=== PATIENT | male | born 1935 | race Caucasian/White ===

== ENCOUNTER 2018-04-08 17:29 | Inpatient (IN) | payer OTHER ==
[~2018-04-08] VITALS: Ht 177.8 cm; Wt 143.0 kg
[~2018-04-08 17:29] MED LIST: ACET325 PO; ALBU3IS INH; ALBU90OI INH; ASCO500 PO; ASPI81CH PO; AZIT500 PO; BISA10S PO; CARV3.125 PO; CEFP200 PO; CHLO25B PO; DOXY100 PO; DULO30 PO; FURO40 PO; Ferrous Sulfat325 MG PO; GABA300 PO; INSDET100 SC; INSU100I6 SC; LOSA25 PO; NYSTRITC TOP; ONDA4ODT PO; PRED10 PO; SIMV40 PO; SPIR25 PO; TRAZ50 PO
[2018-04-08 18:07] LABS: BASOPHILS ABSOLUTE AUTO 0.02 K/mm3 (0.00-0.23); BASOPHILS PERCENT AUTO 0 % (0-2); EOSINOPHILS PERCENT AUTO 0 % (0-6); Hematocrit 37.2 % (37.0-53.0); Hemoglobin 11.2 g/dL (13.5-17.5); IMMATURE GRAN ABSOLUTE AUTO 0.17 K/mm3 (0.00-0.10); IMMATURE GRAN PERCENT AUTO 2 % (0-1); LYMPHOCYTES ABSOLUTE AUTO 0.64 K/mm3 (0.84-5.20); LYMPHOCYTES PERCENT AUTO 8 % (21-46); MONOCYTES ABSOLUTE AUTO 1.99 K/mm3 (0.16-1.47); MONOCYTES PERCENT AUTO 23 % (4-13); Mean Corpuscular HGB 31.5 pg (26.0-34.0); Mean Corpuscular HGB Conc 30.1 g/dL (31.5-36.5); Mean Corpuscular Volume 105 fL (80-100); Mean Platelet Volume 11.2 fL (9.1-12.4); NEUTROPHILS ABSOLUTE AUTO 5.76 K/mm3 (1.96-9.15); NEUTROPHILS PERCENT AUTO 67 % (41-73); Platelet Count 153 K/mm3 (150-400); RDW Coefficient Variation 17.5 % (11.7-14.2); RDW Standard Deviation 67.3 fL (35.1-46.3); Red Blood Cell Count 3.56 M/mm3 (4.30-5.90); White Blood Cell Count 8.58 K/mm3 (4.00-11.30)
[2018-04-08 18:27] LABS: Base Excess Venous 13.9 mmol/L; Bicarbonate Venous 36.2 mmol/L (24.0-30.0); PCO2 Venous 48.2 mmHg (38-42); PO2 Venous 168 mmHg (38-42)
[2018-04-08 18:27] LABS: Troponin I 0.37 ng/mL (0.000-0.040)
[2018-04-08 18:28] LABS: Albumin, Blood 3.3 g/dL (3.4-5.0); Albumin/Globulin Ratio 0.7 (0.8-1.8); Bilirubin, Total 2.4 mg/dL (0.1-1.0); Bun/Creatinine Ratio 24.9 (12.0-20.0); Calcium, Blood 8.7 mg/dL (8.5-10.1); Creatinine, Blood 1.73 mg/dL (0.60-1.20); Globulin, Blood 4.6 g/dL (2.2-4.0); Potassium, Blood 4.8 mmol/L (3.5-5.5); Total Protein, Blood 7.9 g/dL (6.4-8.2)
[2018-04-08 18:31] LABS: Thyroid Stimulating Hormone 1.74 uIU/mL (0.360-4.800)
--- NOTE | 2018-04-08 22:00 | NUR ---
ASSUMED CARE- PT TO PCU 16 AT APPROXIMATELY 2135 FROM ER VIA [facility]. PT IS CURRENTLY ANSWERING ALL ORIENTATION QUESTIONS APPROPRIATELY, BUT IS UNABLE TO KEEP EYES OPEN AND HAVE FULL CONVERSATION WITH STAFF. PT WILL MOSLTY SPEAK IN ORIENTED SENTENCES BUT WILL RAMBLE OCCASIONALLY ABOUT NONSENSICAL TOPICS. PT TRANSFERRED TO BED VIA CEILING LIFT. O2 SATS CURRENTLY 94% ON 5L VIA NASAL CANNULA. LUNG SOUNDS CLEAR WITH DIMINISHED BASES. PT DENIES PAIN. PT GIVEN CALL LIGHT AND ORIENTATION ATTEMPTED- UNABLE TO DETERMINE UNDERSTANDING. WILL CONTINUE WITH ASSESSMENT AND ADMISSION. BED IN LOW POSITION, CALL LIGHT IN REACH. BED ALARM SET FOR SAFETY.
[2018-04-09 00:36] LABS: Adenovirus Not Detected (NOT DETECT); Bordetella pertussis Not Detected (NOT DETECT); Chlamydophila pneumoniae Not Detected (NOT DETECT); Coronavirus 229E Not Detected (NOT DETECT); Coronavirus HKU1 Not Detected (NOT DETECT); Coronavirus NL63 Not Detected (NOT DETECT); Coronavirus OC43 Not Detected (NOT DETECT); Human Metapneumovirus Not Detected (NOT DETECT); Human Rhinovirus/Enterovirus Not Detected (NOT DETECT); Influenza A Not Detected (NOT DETECT); Influenza A/2009-H1 Not Detected (NOT DETECT); Influenza A/H1 Not Detected (NOT DETECT); Influenza A/H3 Not Detected (NOT DETECT); Influenza B Not Detected (NOT DETECT); Mycoplasma pneumoniae Not Detected (NOT DETECT); Parainfluenza Virus 1 Not Detected (NOT DETECT); Parainfluenza Virus 2 Not Detected (NOT DETECT); Parainfluenza Virus 3 Not Detected (NOT DETECT); Parainfluenza Virus 4 Not Detected (NOT DETECT); Respiratory Syncytial Virus Not Detected (NOT DETECT)
[2018-04-09 02:34] LABS: Hematocrit 36.4 % (37.0-53.0); Hemoglobin 10.8 g/dL (13.5-17.5); Mean Corpuscular HGB 31.5 pg (26.0-34.0); Mean Corpuscular HGB Conc 29.7 g/dL (31.5-36.5); Mean Corpuscular Volume 106 fL (80-100); Mean Platelet Volume 11.4 fL (9.1-12.4); Platelet Count 129 K/mm3 (150-400); RDW Coefficient Variation 17.6 % (11.7-14.2); RDW Standard Deviation 68.6 fL (35.1-46.3); Red Blood Cell Count 3.43 M/mm3 (4.30-5.90); White Blood Cell Count 7.48 K/mm3 (4.00-11.30)
[2018-04-09 02:57] LABS: Albumin, Blood 3.1 g/dL (3.4-5.0); Albumin/Globulin Ratio 0.7 (0.8-1.8); Bilirubin, Total 1.9 mg/dL (0.1-1.0); Bun/Creatinine Ratio 24.3 (12.0-20.0); Creatinine, Blood 2.06 mg/dL (0.60-1.20); Globulin, Blood 4.5 g/dL (2.2-4.0); Potassium, Blood 4.5 mmol/L (3.5-5.5); Total Protein, Blood 7.6 g/dL (6.4-8.2)
[2018-04-09 02:58] LABS: Troponin I 0.532 ng/mL (0.000-0.040)
[2018-04-09 03:02] LABS: Source, Urine Clean Catch
[2018-04-09 03:04] LABS: Appearance, Urine Clear (Clear); Blood, Urine 3+ (Neg); Color, Urine Amber (P-Yellow); Glucose Qualitative, Urine Neg (Neg); Ketones, Urine Neg (Neg); Leukocyte Esterase, Urine 1+ (Neg); Nitrite, Urine Neg (Neg); Protein, Urine 3+ (Neg); Specific Gravity, Urine 1.015 (1.003-1.022); Urobilinogen, Urine 2+ (Normal)
[2018-04-09 03:09] LABS: Bilirubin, Urine 1+ (Neg)
[2018-04-09 03:10] LABS: Red Blood Cells, Urine 0-2 /hpf (0-2)
[2018-04-09 03:11] LABS: Amorphous Light (0-Heavy); Bacteria Mod /hpf; Hyaline Casts 50-100 /lpf (0-2); Squamous Epithelial Cells Rare /hpf (Few)
[2018-04-09 03:15] LABS: U Amphetamine Screen Not Detected; U Barbituate Screen Not Detected; U Benzodiazapine Screen Not Detected; U Buprenorphine Screen Not Detected; U Cannabinoids Screen Not Detected; U Cocaine Screen Not Detected; U Methadone Screen Not Detected; U Methamphetamine Screen Not Detected; U Opiates Screen Not Detected; U Oxycodone Screen Not Detected; U Phencyclidine Screen Not Detected; U Propoxyphene Screen Not Detected
--- NOTE | 2018-04-09 03:34 | NUR ---
PROVIDER CONTACTED- PT WITH ELEVATED TROPONIN OF 0.532, DR CURRY UPDATED ON LAB AND PATIENT CONDITION- NO ORDERS RECEIVED IN REGARDS TO LAB. ORDERS RECEIVED FOR DIET, BLOOD GLUCOSE MONITORING, SLIDING SCALE INSULIN AND AMMONIA LEVEL WITH AM LAB DRAW. WILL INPUT ORDERS AND CONTINUE TO MONITOR.
--- NOTE | 2018-04-09 07:00 | NUR ---
SHIFT SUMMARY- PT HAS BECOME MORE ORIENTED THROUGHOUT THE NIGHT AND ABLE TO ANSWER ALL QUESTIONS APPROPRIATELY. VSS. PLEASANT AND COOPERATIVE WITH CARE. O2 SATS HAVE REMAINED >90% ON 3-4L VIA NASAL CANNULA OR BIPAP WITH 6L O2 BLEED IN. PT AMBULATES TO THE RESTROOM OR BEDSIDE COMMODE WITH 1 PERSON ASSIST AND FWW. PT IS VERY STABLE ON HIS FEET. DENIES PAIN, DIZZINESS, LIGHTHEADEDNESS. NO OTHER CHANGES NOTED FROM INITIAL ASSESSMENT. WILL CONTINUE TO MONITOR AND REPORT TO ONCOMING SHIFT RN .BED IN LOW POSITION, CALL LIGHT IN REACH.
[2018-04-09 09:23] LABS: Troponin I 0.446 ng/mL (0.000-0.040)
--- NOTE | 2018-04-09 09:42 | NUR ---
NURSING PCU DAYSHIFT: Assumed care of pt at approx 0700. A/O though forgetful at times, pleasant, cooperative w/care, [employer] [place]. Skin is fairly intact w/scabs noted to b/l shins and redness under folds. General weakness noted, c/o BLE neuropathy, ambulates w/one staff assist using FWW. Denies any pain/discomfort. Tele in place, NSR w/BBB, no c/o CP/pressure, SBP 130's. L/S w/fine bibasilar crackles (L>R), denies dyspnea, O2 sat low to mid 90's on 3L NC. Abd distended which pt states is normal, firm, BT+, voiding w/o difficulty. PIV s/l. No s/s of acute distress at this time. Seen by PMD, new d/o received and reviewed. Pt denies any current needs or questions regarding plan of care. Call light in reach and pt is able to use w/o difficulty. Cont to monitor for any changes.
[2018-04-09] MEDS ORDERED: CLOBET30L TOP (16:38)
[2018-04-09] MEDS ORDERED: MAGOXI400 PO (16:43)
[2018-04-09] MEDS ORDERED: METO2.5 PO (16:47)
[2018-04-09] MEDS ORDERED: POTA10T PO (16:49)
[2018-04-09] MEDS ORDERED: TIOT18 INH (16:54)
[2018-04-09] MEDS ORDERED: TRAZ50 PO (16:55)
--- NOTE | 2018-04-09 17:21 | NUR ---
NURSING PCU DAYSHIFT SUMMARY: No acute changes noted t/o the shift. Pt has been pleasant and cooperative w/care. Has spent the mojority of the shift OOB in a chair, tolerating well. Watched tv, talked on phone to friends/family, and had visitors intermittently t/o the shift. Pt has ambulated to the restroom w/o difficulty and has used call light for assistance when needed. Pt currently sitting in chair having supper. Denies any current needs or questions regarding plan of care. Cont to monitor until rpt is given to NOC RN.
--- NOTE | 2018-04-09 19:40 | NUR ---
ASSUMED CARE PT RESTING IN ROOM IN CHAIR COMFORABTLY. PER DAY SHIFT PT HAS SINCE CLEARED OF ENCEHALOPATHY AND IS AOX4 AND INDEPENDENT IN ROOM. PT ON 3L O2 VIA NC DURING DAY AND WEARS BIPAP AT NIGHT. DENIES ANY PAIN. SKIN PWD. RESP EVEN UNLABORED AT REST W/ SATS >92%. CALL LIGHT IN REACH.
[2018-04-10 04:32] LABS: Bun/Creatinine Ratio 32.3 (12.0-20.0); Calcium, Blood 9.3 mg/dL (8.5-10.1); Creatinine, Blood 1.86 mg/dL (0.60-1.20); Potassium, Blood 4.1 mmol/L (3.5-5.5)
--- NOTE | 2018-04-10 06:17 | NUR ---
SHIFT SUMMARY PT RESTING IN ROOM COMFORTABLY IN CHAIR AT BEDSIDE. NO ACUTE STATUS CHANGES OVERNIGHT. PT USED BIPAP FOR SHORT PERIODS. REPORTED NOT ABLE TO SLEEP WELL. WANTS TO GO HOME. EAGER TO HAVE PROVIDER COME IN AM. PT UP FROM BED TO CHAIR AND BACK MULTIPLE TIMES T/O NIGHT. RESP EVEN UNLABORED AT REST W/ SATS >92%. PT SOME MILD SOB W/ AMBULATION. INDEPENDENT IN ROOM. CALLS APPROPRIATELY. CALL LIGHT IN REACH.
--- NOTE | 2018-04-10 08:00 | NUR ---
PT SITTING ON THE SIDE OF THE BED AWAKE A/OX3, [place], COOPERATIVE WITH CARE, FOLLOWS COMMANDS WELL, DENIES PAIN, STATES HE IS READY TO GO HOME, DR. SOTO IN TO SEE HIM, OK TO DISCHARGE TO HOME. LUNGS ARE CLEAR IN UPPER CAMPO, DIM WITH SOME FINE CRACKLES IN BASES, RESP EVEN AND UNLABORED, NO COUGH NOTED, HRR, TELE IN PLACE RUNNING SR WITH BBB PER MONITOR, SEE STRIP 2+EDEMA NOTED TO B/L LE, CAP REFILL <3SEC VS STABLE, AFEBRILE, IV SITE IS CLEAR AND PATENT, BTX4, ABD ROUND SOFT NONTENDER, VOIDS WITHOUT DIFF, SKIN C/W/D, CHRONIC REDNESS TO B/L LE, CAP REFILL <3 SEC, ROSA, UP INDEP IN ROOM, DELBERT, CALL LIGHT IN REACH.
--- NOTE | 2018-04-10 10:45 | NUR ---
PT HAS BEEN DISCHARGED BY DR. SOTO, WENT OVER INSTRCUTIONS, NO CHANGES, IV REMOVED, PT REFUSED SHOWER WHEN LAY OUT FORMER OFFERED, HERE TO PICK HIM UP, LEFT VIA WHEELCHAIR WITH ESCORT IN ATTENDENCE.
== END 2018-04-10 10:35 | disposition home or self-care (01) | DRG 291 ==
LOC: ER 17:29 → PCU 20:44
PROVIDERS: Emergency Medicine; Hospitalist; ADMIT Internal Medicine
DX: I13.0 Hypertensive heart and chronic kidney disease with heart failure and stage 1 through stage 4 chronic kidney disease, or unspecified chronic kidney disease (principal); J96.21 Acute and chronic respiratory failure with hypoxia; I50.41 Acute combined systolic (congestive) and diastolic (congestive) heart failure; E87.2 Acidosis; Z68.42 Body mass index [BMI] 45.0-49.9, adult; G93.40 Encephalopathy, unspecified; E11.40 Type 2 diabetes mellitus with diabetic neuropathy, unspecified; I42.9 Cardiomyopathy, unspecified; F32.9 Major depressive disorder, single episode, unspecified; E11.22 Type 2 diabetes mellitus with diabetic chronic kidney disease; M19.90 Unspecified osteoarthritis, unspecified site; Z87.891 Personal history of nicotine dependence; E78.5 Hyperlipidemia, unspecified; E66.01 Morbid (severe) obesity due to excess calories; E87.70 Fluid overload, unspecified; Z79.4 Long term (current) use of insulin; K21.9 Gastro-esophageal reflux disease without esophagitis; G47.30 Sleep apnea, unspecified; N18.3 Chronic kidney disease, stage 3 (moderate); Z79.82 Long term (current) use of aspirin
CPT/HCPCS: 36415; 71046; 76705; 80048; 80053; 81001; 82140; 82550; 82803; 82947; 83605; 83880; 84145; 84443; 84484; 85025; 85027; 87040; 87086; 87486; 87581; 87633; 87798; 90686; 93005; 93010; 94660; 94762; 96374; 99285-25; G0008; J1650; J1940; J1956